=== PATIENT | male | born 1985 | race Caucasian/White ===

== ENCOUNTER 2019-02-09 09:14 | Emergency (ER) | payer OTHER ==
[2019-02-09 09:30] LABS: ADD MAN DIFF? NO
[2019-02-09] MEDS: SOD CHLORIDE 0.9% 1,000 ML IV (09:30)
[2019-02-09 09:42] LABS: WHITE BLOOD COUNT 3.5 10^3/ul (4.8-10.8)
[2019-02-09 09:42] LABS: BASOPHILS % 0.9 % (0.0-2.0); EOSINOPHILS % 1.1 % (0.0-7.0); HEMATOCRIT 38.5 % (42.0-52.0); HEMOGLOBIN 13.5 g/dl (14.0-18.0); LYMPHOCYTES % 29.8 % (15.0-51.0); MEAN CORPUSCULAR HEMOGLOBIN 31.5 pg (29.0-33.0); MEAN CORPUSCULAR HGB CONC 35.1 g/dl (32.0-37.0); MEAN CORPUSCULAR VOLUME 89.7 fl (82.0-101.0); MEAN PLATELET VOLUME 9.4 fl (7.4-10.4); MONOCYTE # 0.3 10^3/ul (0.3-0.9); MONOCYTES % 9.5 % (0.0-11.0); NEUTROPHILS % 58.4 % (39.0-77.0); PLATELET COUNT 256 10^3/UL (140-415); RED BLOOD COUNT 4.29 10^6/ul (4.70-6.10)
[2019-02-09 09:51] LABS: ANION GAP 13 (5-13); BLOOD UREA NITROGEN 19 mg/dl (7-20); CALCIUM 9.8 mg/dl (8.4-10.2); CARBON DIOXIDE 22 mmol/L (21-31); CHLORIDE 105 mmol/L (97-110); CREATININE 1.32 mg/dl (0.61-1.24); Estimated GFR > 60 mL/min (>60); GLUCOSE 123 mg/dl (70-220); POTASSIUM 3.6 mmol/L (3.5-5.1); SODIUM 140 mmol/L (135-144)
[2019-02-09 10:03] LABS: TROPONIN-I < 0.012 ng/ml (0.000-0.120)
== END 2019-02-09 11:41 | disposition home or self-care (01) ==
LOC: E/R 09:14
DX: E86.0 Dehydration (principal); R07.9 Chest pain, unspecified
CPT/HCPCS: 36415; 71045; 80048; 84484; 85025; 93005; 99285-25